=== PATIENT | female | born 2000 | race Two or more races ===

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

== ENCOUNTER 2021-01-30 13:48 | Outpatient (CLI) | payer OTHER, SELFPAY ==
--- NOTE | ~2021-01-30 | US_ITS ---
EXAMINATION: US pelvic complete w TV DATE: 01/30/2021 15:37 INDICATION: Lower abdominal pain, unspecified TECHNIQUE: Multiple transabdominal and endovaginal sonographic images of the pelvis were obtained. COMPARISON: None. FINDINGS: The uterus measures 8.3 x 5.2 x 3.8 cm. The endometrial complex measures 3 mm. An IUD is in expected position. The right ovary measures 3.5 x 2.3 x 1.9 cm. The left ovary measures 3.8 x 2.9 x 2.7 cm. There is normal vascular flow in the ovaries. There is no free fluid in the pelvis. IMPRESSION: 1. No sonographic correlate for the patient's symptoms. 2. IUD in expected position. Reviewed, dictated and finalized at location A.
== END 2021-01-30 13:49 | disposition home or self-care (01) ==
LOC: ANHIMG 13:55
PROVIDERS: PCP Internal Medicine; Visit Provider Nurse Practitioner
DX: R10.30 Lower abdominal pain, unspecified (principal); Z97.5 Presence of (intrauterine) contraceptive device
CPT/HCPCS: 76830; 76856